=== PATIENT | male | born 1950 | race African-American/Black ===

== ENCOUNTER → 2016-07-07 | Day surgery (SDC) | payer MEDICARE ==
[~2016-07-07] MED LIST: ADVAI100I PO; ALPR0.5T3 PO; ASPI81 PO; B-12500T3 PO; BUPR-86 PO; GABA300C3 PO; HYDR-3129 PO; IRON28TA OR; LACTATED RINGER'S 1000 ML INJ 1,000 ML ONE; LOVA40TA PO; METO25 PO; MULT-65 PO; PLAV75TA PO; POTA-243 PO; PROPOFOL 200 MG/20 ML AMP IV ONE; SELE200T2 OR; VIAG100T PO
--- NOTE | 2016-07-07 11:17 | GIPROC ---
[facility] [address] [facility], [address] COLONOSCOPY PROCEDURE REPORT EXAM DATE: 07/07/2016 PATIENT NAME: Khurram Pablo MR #: [id number] BIRTHDATE: 1950 ENDOSCOPIST: Katherine Hurtado MD ORDER #: [id number] GREEN CHAIN PULLER: Shelia Reed RN STATUS: outpatient INDICATIONS: The patient is a 66 yr old male here for a colonoscopy due to average risk patient for colon cancer PROCEDURE PERFORMED: Colonoscopy, screening MEDICATIONS: None and Per Anesthesia. PREP QUALITY: The [place] Bowel Prep Score was Right colon 2, Mid colon 3, and Left colon 3. Total = 8. PREP TYPE:GoLytely ESTIMATED BLOOD LOSS: None CONSENT: The patient understands the risks and benefits of the procedure and understands that these risks include, but are not limited to: sedation, allergic reaction, infection, perforation and/or bleeding. Alternative means of evaluation and treatment include, among others: physical exam, x-rays, and/or surgical intervention. The patient elects to proceed with this endoscopic procedure. medical equipment was checked for proper function. Hand hygiene and appropriate measures for infection prevention was taken. After the risks, benefits and alternatives of the procedure were thoroughly explained, Informed consent was verified, confirmed and timeout was successfully executed by the treatment team. A digital exam revealed external hemorrhoids The [id number] ([id number]) endoscope was introduced through the anus and advanced to the cecum, which was identified by both the appendix and ileocecal valve. The instrument was then slowly withdrawn as the colon was fully examined. COLON FINDINGS: The colonic mucosa appeared normal. Retroflexed views revealed internal hemorrhoids and Retroflexed views revealed small internal hemorrhoids The scope was then completely withdrawn from the patient and the procedure terminated. PROCEDURE WITHDRAWAL TIME:6minutes ADVERSE EVENTS: There were no complications. IMPRESSIONS: 1. The colonic mucosa appeared normal 2. Retroflexed views revealed internal hemorrhoids 3. Retroflexed views revealed small internal hemorrhoids 4. Revealed external hemorrhoids RECOMMENDATIONS: 1. Continue surveillance 2. Yearly hemoccult RECALL: Return 10 years Colonoscopy Katherine Hurtado MD eSigned: Katherine Hurtado MD 07/07/2016 11:16 AM cc: Kayla Garcia and Mira Douglas M.D. PATIENT NAME: Khurram Pablo MR#: [id number]
== END | disposition home or self-care (01) ==
LOC: ESDC 09:59
PROVIDERS: ATTEND Internal Medicine Gastroenterology
DX: Z12.11 Encounter for screening for malignant neoplasm of colon (principal); K64.8 Other hemorrhoids; K64.4 Residual hemorrhoidal skin tags
CPT/HCPCS: 00810; 45378; J7120

== ENCOUNTER 2017-06-23 06:10 | Inpatient (IN) | payer MEDICARE, OTHER ==
[~2017-06-23] VITALS: Ht 185.4 cm; Wt 77.0 kg
[~2017-06-23 06:10] MED LIST changes: -ADVAI100I PO; +ASPI1TAB57 PO; -ASPI81 PO; -B-12500T3 PO; -BUPR-86 PO; +BUPR150CR PO; -GABA300C3 PO; +GABA300C5 PO; -HYDR-3129 PO; +HYDR-3583 PO; -IRON28TA OR; -LACTATED RINGER'S 1000 ML INJ 1,000 ML ONE; -METO25 PO; +METO25TA3 PO; -PLAV75TA PO; -POTA-243 PO; +POTA10TA2 PO; -PROPOFOL 200 MG/20 ML AMP IV ONE; -VIAG100T PO
[2017-06-23] MEDS ORDERED: CHLORHEXIDINE GLUCONATE 2 % 1 PACK (2 CLOTHS) TOPICAL PRN (06:30)
[2017-06-23] MEDS ORDERED: LACTATED RINGER'S 1000 ML IV PRN (06:30)
[2017-06-23] MEDS ORDERED: SODIUM CHLORID 0.9% 500 ML IV PRN (06:30)
[2017-06-23] MEDS ORDERED: POVIDONE IODINE 5% (ANTISEPSIS KIT) 4 APPLICATIONS EACH NARE PRN (06:30)
[2017-06-23] MEDS ORDERED: METOPROLOL TARTRATE 25 MG TAB PO PRN (06:30)
--- NOTE | 2017-06-23 06:34 | PD.VS.PN ---
Pre-operative Note Pre-operative diagnosis: PAD, aorto-iliac occlusive disease and failed inflow procedures Planned procedure: ABF Interval History: Pt has been feeling well, no changes that would preclude surgery Labs: pending Blood: T&S Imaging: CTA (NARVAEZ) reviewed Orders: NPO Ancef 2g IV OCTOR Post-operative destination: CVICU Operative site marked: No (bilateral and midline) Consent: Informed consent has been obtained from Khurram Pablo. I have explained the procedure in detail and discussed the risks, benefits, and potential complications. All questions have been answered. Patient contact information: [phone] Angel Marcano MD Jun 23, 2017 06:34
[2017-06-23] MEDS ORDERED: BUPIVACAINE HCL PF 0.5% 30 ML VIAL ONE (06:41)
[2017-06-23] MEDS ORDERED: HEPARIN SODIUM - IV 10,000 UNITS/10 ML VIAL ONE ×2 (06:41→06:49)
[2017-06-23] MEDS ORDERED: ceFAZolin INJ 1,000 MG VIAL ONE ×2 (06:41→11:49)
[2017-06-23] MEDS ORDERED: PROTAMINE SULFATE 50 MG/5 ML VIAL ONE (06:41)
[2017-06-23] MEDS ORDERED: THROMBIN (TOPICAL) 20,000 UNIT SPRAY KIT ONE (06:42)
[2017-06-23] MEDS ORDERED: HEPARIN-NS/PF INJ 0 ML ONE (06:42)
[2017-06-23 06:43] LABS: BILIRUBIN, URINE NEG (NEG); BLOOD, URINE NEG (NEG); GLUCOSE,URINE NEG (NEG); KETONE, URINE NEG (NEG); MUCUS URINE FEW /lpf (OCC); NITRITE,URINE NEG (NEG); PH, URINE 5.5 (5.0-8.5); SQUAMOUS EPITHELIAL CELL URINE <1 /hpf (0-5); URINE COLOR YELLOW (YELLW/STRAW); URINE LEUKOCYTE ESTERASE NEG (NEG)
[2017-06-23] MEDS ORDERED: ACETAMINOPHEN 1000 MG/100 ML 100 ML IV ONE (07:16)
[2017-06-23 07:25] LABS: AUTOMATED NEUTROPHIL # 2.4 TH/MM3 (1.8-7.7); BASOPHIL % 0.4 % (0.0-2.0); EOSINOPHIL # 0.1 TH/MM3 (0-0.4); EOSINOPHIL % 1.7 % (0.0-4.0); HEMATOCRIT 42.7 % (39.0-51.0); HEMOGLOBIN 14.6 GM/DL (13.0-17.0); LYMPH % 29.2 % (9.0-44.0); LYMPHOCYTE # 1.2 TH/MM3 (1.0-4.8); MEAN CELL VOLUME 96.1 FL (80.0-100.0); MEAN CORPUSCULAR HGB CONC 34.3 % (32.0-36.0); MEAN PLATELET VOLUME 8.1 FL (7.0-11.0); MONOCYTE # 0.5 TH/MM3 (0-0.9); NEUT % 57.7 % (16.0-70.0); PLATELET COUNT 131 TH/MM3 (150-450); RED BLOOD COUNT 4.44 MIL/MM3 (4.50-5.90); WHITE BLOOD COUNT 4.2 TH/MM3 (4.0-11.0)
[2017-06-23 07:32] LABS: INTERNATIONAL NORMALIZED RATIO 1.1 RATIO; PROTHROMBIN TIME - PATIENT 10.7 SEC (9.8-11.6)
[2017-06-23 07:45] LABS: BICARBONATE 31.3 MEQ/L (21.0-32.0); CALCIUM 8.8 MG/DL (8.5-10.1); CREATININE 1.28 MG/DL (0.60-1.30)
[2017-06-23] MEDS ORDERED: HEPARIN SODIUM - SQ 10,000 UNITS/ML VIAL ONE (09:25)
[2017-06-23] MEDS ORDERED: FUROSEMIDE 20 MG/2 ML VIAL ONE (11:58)
[2017-06-23] MEDS ORDERED: VECURONIUM BROMIDE 20 MG VIAL IV ONE (12:00)
[2017-06-23] MEDS ORDERED: PHENYLEPHRINE HCL 10 MG/ML VIAL IV ONE (12:00)
[2017-06-23] MEDS ORDERED: PROPOFOL 200 MG/20 ML AMP IV ONE (12:00)
[2017-06-23] MEDS ORDERED: ePHEDrine/NS 25 MG/5 ML SYRINGE IV ONE (12:00)
[2017-06-23] MEDS ORDERED: PHENYLEPH/NS 1000 MCG/10 ML SYR IV ONE (12:00)
[2017-06-23] MEDS ORDERED: GLYCOPYRROLATE 1 MG/5 ML SYRINGE IV PUSH ONE (12:00)
[2017-06-23] MEDS ORDERED: LIDOCAINE HCL 1% PF 5 ML SYRINGE OTHER ONE (12:00)
[2017-06-23] MEDS ORDERED: NEOSTIGMINE 5 MG/5 ML SYRINGE IV PUSH ONE (12:00)
[2017-06-23] MEDS ORDERED: STERILE WATER FOR INJECTION 20 ML VIAL IV ONE (12:00)
[2017-06-23] MEDS ORDERED: ROCURONIUM INJ 50 MG/5 ML SYRINGE IV PUSH ONE (12:00)
[2017-06-23] MEDS ORDERED: NORMOSOL R INJ 2,000 ML IV ONE (12:00)
[2017-06-23] MEDS ORDERED: LACTATED RINGER'S 1000 ML INJ 2,000 ML IV ONE (12:00)
--- NOTE | 2017-06-23 12:30 | EKG ---
Date Performed: 06/23/2017 Time Performed: 07:05:42 PTAGE: 67 years EKG: SINUS BRADYCARDIA WITH SINUS ARRHYTHMIA BORDERLINE ECG PREVIOUS TRACING : 09/08/2011 12.13 Since the previous tracing, no significant change noted DOCTOR: Laith Washington Interpretating Date/Time 06/23/2017 12:30:13
[2017-06-23] MEDS ORDERED: HYDROmorphone HCL PF 1 MG/ML VIAL ONE (12:35)
--- NOTE | 2017-06-23 12:48 | HHI.PR ---
cc: Anegl Marcano MD Immediate Post Op Note Procedure Date: Jun 23, 2017 Pre Op Diagnosis: PAD, aorto-iliac occlusive disease Post Op Diagnosis: PAD, aorto-iliac occlusive disease Surgeon: Angel Marcano Acid Mixer(s): Patrice Mathis Procedure: 1. ABF (16x8) 2. L PFA TEA with patch Findings: significant occlusive disease B groins prior fem-fem and R groin reconstruction R SFA chronically occluded Complications: none Specimen(s) removed: none for pathology Estimated blood loss: 400mL Anesthesia: General Drains: None Fluids: 2300mL IVF Urinary Output (mLs): 300 Patient to: CVICU Patient Condition: Good Implant/Devices: SEE IMPLANT LOG (if applicable) Date/Time of Procedure: SEE SURGICAL CARE RECORD Angel Marcano MD Jun 23, 2017 12:48
[2017-06-23] MEDS ORDERED: NALOXONE HCL 0.4 MG/ML AMP IV PUSH PRN (13:00)
[2017-06-23 13:48] LABS: HEMATOCRIT 38.4 % (39.0-51.0); HEMOGLOBIN 13.2 GM/DL (13.0-17.0); MEAN CELL VOLUME 96.2 FL (80.0-100.0); MEAN CORPUSCULAR HEMOGLOBIN 33.1 PG (27.0-34.0); MEAN CORPUSCULAR HGB CONC 34.5 % (32.0-36.0); MEAN PLATELET VOLUME 8.1 FL (7.0-11.0); PLATELET COUNT 135 TH/MM3 (150-450); RED BLOOD COUNT 3.99 MIL/MM3 (4.50-5.90); RED CELL DISTRIBUTION WIDTH 13.9 % (11.6-17.2); WHITE BLOOD COUNT 16.9 TH/MM3 (4.0-11.0)
[2017-06-23] MEDS: PCA - TOTAL MG DILAUDID DELIVERED PER SHIFT OTHER SCH ×2 (14:00→23:50)
--- NOTE | 2017-06-23 14:12 | PD.CONS ---
[facility] Service Critical Care Medicine Consult Requested By Dr. Marcano Reason for Consult medical management of comorbid conditions Primary Care Physician Mira Douglas M.D. History of Present Illness This is a 5-year-old male with a history of peripheral vascular disease who presents for aortobifemoral bypass. He underwent uncompleted bypass and arrives to the CVICU in stable and extubated condition. Of note, his GORDY in the right lower extremity was 0 preoperatively and now is 0.5. He does not have palpable pulses in the right lower extremity but dopplerable pulses weakly in the right lower extremity. The patient is arousing from anesthesia and a full history is unobtainable. However patient, the patient denies nausea, vomiting, headache, shortness of breath, chest pain. Review of Systems ROS Limitations: Clinical Condition Respiratory: DENIES: Shortness of breath Cardiovascular: DENIES: Chest pain Gastrointestinal: DENIES: Nausea, Vomiting Neurologic: DENIES: Headache ROS Arousing from anesthesia Past Family Social History Allergies: Coded Allergies: codeine (Unverified Allergy, Severe, HALLUCINATES, 06/23/17) hallucinates Past Medical History Coronary artery disease Peripheral arterial vascular disease Hyperlipidemia Hypertension Past Surgical History Coronary angioplasty Pacemaker Reported Medications Potassium Chloride ER (Potassium Chloride) 10 Meq Tab 10 Meq PO DAILY Multi-Vitamin Daily (Multiple Vitamin) 1 Tab Tab 1 Tab PO DAILY Metoprolol Tartrate 25 Mg Tab 25 Mg PO BID Lovastatin 40 Mg Tab 40 Mg PO DAILY Hydrocodone-Acetaminophen 10-325 mg Tab 1 Tab PO Q4H PRN Gabapentin 300 Mg Cap 300 Mg PO BID Wellbutrin SR 12 HR (Bupropion HCl) 150 Mg Tab 150 Mg PO Q12HR Aspirin 81 (Aspirin) 81 Mg Tabdr 81 Mg PO DAILY Alprazolam 0.5 Mg Tab 0.5 Mg PO Q8H PRN Active Ordered Medications See MAR Family History Reviewed and found to be noncontributory to his acute illness Social History Former smoker, denies EtOH. Physical Exam Vital Signs Vital Signs Date Time Temp Pulse Resp B/P (MAP) Pulse Ox O2 Delivery O2 Flow Rate FiO2 06/23/17 07:03 97.5 60 20 144/68 (93) 100 Physical Exam GENERAL: Middle-aged appearing male, lying in bed, arousing from anesthesia, somnolent but arousable HEENT: Normocephalic. Atraumatic. Pupils equal, round, reactive, conjugate. Mucous membranes are moist NECK: Trachea is midline. There is no JVD. CHEST: Equal chest rise. Nasal cannula oxygen. CARDIOVASCULAR: Normal rate, regular rhythm. Appears sinus by telemetry. ABDOMEN: Soft, midline abdominal incision with Dermabond, site is clean and dry. Abdomen is mildly tender to palpation diffusely, no guarding or rebound. MUSCULOSKELETAL: Bilateral groin sites are covered with wound vacs. There is no evidence of groin hematoma. Distal pulses are dopplerable bilaterally, stronger in the right and the left which is baseline per Dr. Marcano. NEUROLOGICAL: RASS -2. Arousing from anesthesia. Moves all extremities. Follows commands. No focal deficits. Laboratory Laboratory Tests Test 06/23/17 06:20 06/23/17 07:10 06/23/17 13:35 Urine Color YELLOW Urine Turbidity CLEAR Urine pH 5.5 Urine Specific Foster 1.023 Urine Protein TRACE Urine Glucose (UA) NEG Urine Ketones NEG Urine Occult Blood NEG Urine Nitrite NEG Urine Bilirubin NEG Urine Urobilinogen 4.0 Urine Leukocyte Esterase NEG Urine RBC LESS THAN 1 Urine WBC 1 Urine Squamous Epithelial Cells <1 Urine Mucus FEW Microscopic Urinalysis Comment CULT NOT INDICATED White Blood Count 4.2 16.9 Red Blood Count 4.44 3.99 Hemoglobin 14.6 13.2 Hematocrit 42.7 38.4 Mean Corpuscular Volume 96.1 96.2 Mean Corpuscular Hemoglobin 33.0 33.1 Mean Corpuscular Hemoglobin Concent 34.3 34.5 Red Cell Distribution Width 14.0 13.9 Platelet Count 131 135 Mean Platelet Volume 8.1 8.1 Neutrophils (%) (Auto) 57.7 Lymphocytes (%) (Auto) 29.2 Monocytes (%) (Auto) 11.0 Eosinophils (%) (Auto) 1.7 Basophils (%) (Auto) 0.4 Neutrophils # (Auto) 2.4 Lymphocytes # (Auto) 1.2 Monocytes # (Auto) 0.5 Eosinophils # (Auto) 0.1 Basophils # (Auto) 0.0 CBC Comment DIFF FINAL Differential Comment Prothrombin Time 10.7 Prothromb Time International Ratio 1.1 Blood Urea Nitrogen 9 Creatinine 1.28 Random Glucose 93 Calcium Level 8.8 Sodium Level 143 Potassium Level 4.2 Chloride Level 109 Carbon Dioxide Level 31.3 Anion Gap 3 Estimat Glomerular Filtration Rate 68 Result Diagram: 06/23/17 1335 06/23/17 0710 Assessment and Plan Assessment and Plan Assessment: 67-year-old male postop day 0 status post aortobifemoral bypass. We will admit to ICU with frequent neurovascular checks. s/p aortobifemoral bypass Severe peripheral arterial disease - frequent neurovascular checks - post-op labs - close uop monitoring HTN - restart home losartan - hold lopressor for now: will likely restart in the AM. CAD - restart home aspirin Peripheral neuropathy - restart home gabapentin Depression - restart home wellbutrin Anxiety - hold home xanax. would judiciously add back if severe anxiety or if history of chronic xanax use. Diet management per Dr. Marcano. SCDs Admit to ICU CCM will continue to follow along as long as patient remains in the CVICU. Aakash Powell MD Jun 23, 2017 14:12
[2017-06-23] MEDS: HYDROmorphone HCL PCA 6 MG/30 ML IV SCH (14:18)
[2017-06-23] MEDS: LACTATED RINGER'S 1000 ML INJ 1,000 ML IV SCH (14:18)
[2017-06-23 14:30] LABS: BICARBONATE 26.5 MEQ/L (21.0-32.0); CALCIUM 7.9 MG/DL (8.5-10.1); CREATININE 1.34 MG/DL (0.60-1.30)
[2017-06-23 15:00] VITALS: BP_SYST 142; BP_SYST 144; BP_DIAS 56; BP_DIAS 74; PULSE 62; RESP 16; TEMP 97.7; O2SAT 97
--- NOTE | 2017-06-23 16:51 | MP ---
cc: Angel Marcano MD DATE OF OPERATION: 06/23/2017 PREOPERATIVE DIAGNOSIS: Peripheral arterial occlusive disease, infrarenal aortoiliac occlusive disease and status post bilateral groin reconstruction and left to right fem-fem bypass with iliac stenting. POSTOPERATIVE DIAGNOSIS: Peripheral arterial occlusive disease, infrarenal aortoiliac occlusive disease and status post bilateral groin reconstruction and left to right fem-fem bypass with iliac stenting. PROCEDURE PERFORMED: 1. Aortobifemoral bypass graft with a 16 x 8 mm Dacron. 2. Left profunda endarterectomy and patch angioplasty. ATTENDING SURGEON: Angel Marcano MD TALENT DEVELOPMENT COORDINATOR SURGEON: Patrice Mathis. ANESTHESIA: General. INDICATIONS FOR PROCEDURE: Mr. Pablo is a 67-year-old gentleman with significant peripheral vascular disease, aBIs of zero on the right. He has aortoiliac occlusive disease and a CT scan and surgical history includes bilateral groin reconstruction, fem-fem bypass and iliac stenting, all of which appeared to have failed. He is taken to the operating room for definitive in line aortic reconstruction. Intraoperatively, it was found that the outflow of the aortobifemoral was his right profunda femoris. DESCRIPTION OF PROCEDURE: Informed consent was obtained. The patient was taken to the operating room and placed supine on the operating table. An appropriate timeout was taken to ensure the patient's identity, operative site and planned procedure. The administration of 2 grams of Ancef was initiated prior to skin incision and was redosed 4 hours later. Everyone in the room agreed with the timeout and we proceeded. He was prepped from the chin to his toes. Vertical incision made in the patient's groin. It was carried down through subcutaneous tissue with electrocautery. Dense scar tissue was encountered on the left groin. We dissected out the fem-fem bypass, which was occluded and transected. We then dissected out the external iliac artery, common femoral artery, profunda down to the second and third order branches as well as the superficial femoral artery. On the right hand side, even more scar tissue was encountered. There was the recipient side of the fem-fem bypass, as well as what appears to be a groin reconstruction. All this was dissected free. The SFA was occluded and very calcific. The profunda was dissected free very distally, but was a reasonably sized and caliber blood vessel. It was dissected free for about 3 cm. Tunnel was then created from the groin up towards the abdomen. An incision was made in the patient's abdomen from the xiphoid just below the umbilicus, carried down through subcutaneous tissue with electrocautery. The fascia was then divided. The peritoneum was sharply entered and the abdominal contents were explored. There was no untoward pathology. The bowel was swept to the patient's right-hand side and the aorta was easily identified. We dissected up to the renal vein and the aorta was soft enough to place a clamp at this location. Tunnels were then created from the groins to the abdomen running along the iliac arteries and clamps were placed in these planes. The patient was systemically heparinized. Proximal and distal control of the aorta was obtained with a zinger and a DeBakey aortic clamp and a longitudinal aortotomy was made with an 11-blade extended with [place]na scissors. A 16 x 8 graft was brought up onto the field, spatulated and sewn end-to-side with running 3-0 Prolene suture. At the completion was flushed and hemostatic clamps were placed on the graft and the clamps released from the aorta. Hemostasis was achieved. Taking caution not to twist each limb, the limbs were passed down through the tunnels to the groins. On the right hand side, proximal and distal control of the profunda were obtained with profunda clamps and longitudinal arteriotomy was made with 11 blade, extended with Sae scissors. The graft was cut to an appropriate length, spatulated and sewn end to side to the profunda with running 5-0 Prolene suture. The patient was flushed and noted to be hemostatic. There was nice palpable pulse in the distal profunda. On the left hand side, the external iliac artery was occluded with a profunda clamp and 2 branches of the profunda as well as the SFA were occluded with profunda clamps. A longitudinal arteriotomy was made, going from the common femoral artery, excising the fem-fem donor site and extending down to the profunda. The profunda was endarterectomized and a bovine pericardial patch was sewn on with a running 5-0 Prolene suture and a longitudinal arteriotomy was made in this patch and extended with Sae scissors. The ABF limb was cut to an appropriate length, spatulated and sewn end-to-side with running 5-0 Prolene suture. At the completion it was flushed and noted to be hemostatic. The clamps were released. There were palpable pulses in the recipient arteries of the ABF limb. There were Doppler signals in the left foot and the right foot was warm and pink. The wounds were made hemostatic. The heparin was reversed with protamine. The aortic graft was reretroperitonealized with 2-0 Polysorb. The abdominal wound was then closed with #1 looped Maxon, 3-0 Polysorb and 4-0 Monocryl. The groins were closed in 4 layers with 2-0 Polysorb twice, 3-0 Polysorb and 4-0 Monocryl. Sponge and needle counts were correct at the end of the case. I was present, scrubbed, and performed the entire procedure. Angel Marcano MD RJBob/KRISTYN , 03:06 PM , 04:51 PM
[2017-06-23 17:51] VITALS: O2SAT 94
[2017-06-23 19:00] VITALS: PULSE 81
[2017-06-23 19:28] VITALS: BP_SYST 134; BP_SYST 144; BP_DIAS 57; BP_DIAS 74; PULSE 71; RESP 16; TEMP 97.9; O2SAT 94
[2017-06-23] MEDS: buPROPion HCL 150 MG SUSTAINED RELEASE TAB PO SCH (21:00)
[2017-06-23] MEDS: FAMOTIDINE 20 MG TAB PO SCH (21:00)
[2017-06-23] MEDS: GABAPENTIN 300 MG CAP PO SCH (21:00)
[2017-06-23 22:00] VITALS: RESP 20
[2017-06-23 23:00] VITALS: BP_SYST 150; BP_SYST 158; BP_DIAS 61; BP_DIAS 84; PULSE 81; PULSE 83; RESP 20; TEMP 97.7; O2SAT 95
[2017-06-24] VITALS (9 sets, daily range): BP systolic 133–156; BP diastolic 60–82; PULSE 76–92; RESP 16–18; TEMP 98.5–100; O2SAT 94–96
[2017-06-24] MEDS: LACTATED RINGER'S 1000 ML INJ 1,000 ML IV SCH ×2 (01:55→13:50)
[2017-06-24] MEDS ORDERED: LABETALOL HCL 100 MG/20 ML VIAL ONE (02:29)
[2017-06-24] MEDS ORDERED: hydrALAZINE HCL 20 MG/ML VIAL IV PUSH PRN (02:30)
[2017-06-24] MEDS ORDERED: LABETALOL HCL 100 MG/20 ML VIAL IV PUSH PRN (02:30)
[2017-06-24 04:12] LABS: HEMATOCRIT 37.8 % (39.0-51.0); HEMOGLOBIN 13.2 GM/DL (13.0-17.0); MEAN CELL VOLUME 95.3 FL (80.0-100.0); MEAN CORPUSCULAR HEMOGLOBIN 33.2 PG (27.0-34.0); MEAN CORPUSCULAR HGB CONC 34.8 % (32.0-36.0); MEAN PLATELET VOLUME 8.4 FL (7.0-11.0); PLATELET COUNT 127 TH/MM3 (150-450); RED BLOOD COUNT 3.97 MIL/MM3 (4.50-5.90); RED CELL DISTRIBUTION WIDTH 14.2 % (11.6-17.2); WHITE BLOOD COUNT 13.2 TH/MM3 (4.0-11.0)
[2017-06-24 04:27] LABS: BICARBONATE 25.8 MEQ/L (21.0-32.0); CALCIUM 7.9 MG/DL (8.5-10.1); CREATININE 1.39 MG/DL (0.60-1.30)
[2017-06-24] MEDS: PCA - TOTAL MG DILAUDID DELIVERED PER SHIFT OTHER SCH ×2 (06:00→13:50)
--- NOTE | 2017-06-24 06:51 | PD.VS.PN ---
Subjective POD #: 1 Procedure(s): ABF and L groin PFA TEA Subjective/Hospital Course looks great. pain controlled Minimal NGT output decent UOP Feet feel ok Objective Vitals/I&O Date Time Temp Pulse Resp B/P (MAP) Pulse Ox O2 Delivery O2 Flow Rate FiO2 06/24/17 06:12 16 06/24/17 06:00 16 06/24/17 03:18 98.5 76 18 133/75 (94) 94 138/60 (86) 06/24/17 03:00 83 06/23/17 23:50 20 06/23/17 23:00 83 06/23/17 23:00 97.7 81 20 158/84 (108) 95 150/61 (90) 06/23/17 22:00 20 06/23/17 21:49 98 Room Air 06/23/17 19:28 97.9 71 16 144/74 (97) 94 134/57 (82) 06/23/17 19:00 81 06/23/17 17:51 94 21 06/23/17 15:00 97.7 62 16 144/74 (97) 97 142/56 (84) 06/23/17 15:00 62 06/23/17 14:18 14 06/23/17 07:03 97.5 60 20 144/68 (93) 100 06/24/17 06/24/17 06/24/17 07:00 15:00 23:00 Intake Total 1028 ml Output Total 655 ml Balance 373 ml Exam: resting comfortably, neuro intact strong Doppler signals B groins soft with Prevena Laboratory Laboratory Tests Test 06/23/17 07:10 06/23/17 13:35 06/24/17 03:40 White Blood Count 4.2 16.9 13.2 Red Blood Count 4.44 3.99 3.97 Hemoglobin 14.6 13.2 13.2 Hematocrit 42.7 38.4 37.8 Mean Corpuscular Volume 96.1 96.2 95.3 Mean Corpuscular Hemoglobin 33.0 33.1 33.2 Mean Corpuscular Hemoglobin Concent 34.3 34.5 34.8 Red Cell Distribution Width 14.0 13.9 14.2 Platelet Count 131 135 127 Mean Platelet Volume 8.1 8.1 8.4 Neutrophils (%) (Auto) 57.7 Lymphocytes (%) (Auto) 29.2 Monocytes (%) (Auto) 11.0 Eosinophils (%) (Auto) 1.7 Basophils (%) (Auto) 0.4 Neutrophils # (Auto) 2.4 Lymphocytes # (Auto) 1.2 Monocytes # (Auto) 0.5 Eosinophils # (Auto) 0.1 Basophils # (Auto) 0.0 CBC Comment DIFF FINAL Differential Comment Prothrombin Time 10.7 Prothromb Time International Ratio 1.1 Blood Urea Nitrogen 9 9 15 Creatinine 1.28 1.34 1.39 Random Glucose 93 166 155 Calcium Level 8.8 7.9 7.9 Sodium Level 143 141 143 Potassium Level 4.2 4.1 4.2 Chloride Level 109 108 109 Carbon Dioxide Level 31.3 26.5 25.8 Anion Gap 3 7 8 Estimat Glomerular Filtration Rate 68 64 62 Assessment and Plan Plan POD#1 s/p ABF and groin reconstruction 1. D/C NGT (done on rounds) 2. D/C a-line 3. Continue MIVF at present rate given mild inc creatinine. UOP ok 4. OOB TC 5. If + flatus, ok for clears later today, but likely tomorrow 6. continue pulse checks Discharge Planning 4-5 days to CPCU later today vs tomorrow Angel Marcano MD Jun 24, 2017 06:51
[2017-06-24] MEDS: METOPROLOL TARTRATE 25 MG TAB PO SCH ×2 (09:12→21:46)
[2017-06-24] MEDS: buPROPion HCL 150 MG SUSTAINED RELEASE TAB PO SCH ×2 (09:12→21:44)
[2017-06-24] MEDS: FAMOTIDINE 20 MG TAB PO SCH ×2 (09:12→21:45)
[2017-06-24] MEDS: GABAPENTIN 300 MG CAP PO SCH ×2 (09:12→21:45)
[2017-06-24] MEDS: ASPIRIN EC 81 MG TABEC PO SCH (09:13)
[2017-06-24] MEDS: PRAVASTATIN SOD 40 MG TAB PO SCH (09:13)
[2017-06-24] MEDS: HYDROmorphone HCL PCA 6 MG/30 ML IV SCH (09:14)
[2017-06-24] MEDS: ENOXAPARIN SODIUM 40 MG/0.4 ML SYRINGE SQ SCH (12:00)
--- NOTE | 2017-06-24 12:08 | HHI.CCPN ---
Subjective Remarks/Hospital Course Hospital Course: This is a 5-year-old male with a history of peripheral vascular disease who presents for aortobifemoral bypass. He underwent uncompleted bypass and arrives to the CVICU in stable and extubated condition. Of note, his GORDY in the right lower extremity was 0 preoperatively and now is 0.5. He does not have palpable pulses in the right lower extremity but dopplerable pulses weakly in the right lower extremity. The patient is arousing from anesthesia and a full history is unobtainable. However patient, the patient denies nausea, vomiting, headache, shortness of breath, chest pain. Subjective: 06/24: clinically improving. NGT d/c'd. art line d/c'd. Cr did slightly increase , though uop adequate. denies complaints. extremities warm and perfused. no flatus yet. Objective Vital Signs Date Time Temp Pulse Resp B/P (MAP) Pulse Ox O2 Delivery O2 Flow Rate FiO2 06/24/17 11:00 83 06/24/17 11:00 98.8 18 151/76 (101) 95 Arterial Line 06/24/17 07:00 Room Air 06/23/17 17:51 21 Intake and Output 06/24/17 06/24/17 06/25/17 08:00 16:00 00:00 Intake Total 1028 ml Output Total 655 ml Balance 373 ml Result Diagram: 06/24/17 0340 06/24/17 0340 Objective Remarks GENERAL: Middle-aged appearing male, sitting up in bed, awake, alert. HEENT: Normocephalic. Atraumatic. Pupils equal, round, reactive, conjugate. Mucous membranes are moist NECK: Trachea is midline. There is no JVD. CHEST: Equal chest rise. Nasal cannula oxygen. CARDIOVASCULAR: Normal rate, regular rhythm. Appears sinus by telemetry. ABDOMEN: Soft, midline abdominal incision with Dermabond, site is clean and dry. Abdomen is mildly tender to palpation diffusely, no guarding or rebound. MUSCULOSKELETAL: Bilateral groin sites are covered with wound vacs. There is no evidence of groin hematoma. Distal pulses are dopplerable bilaterally, stronger in the right and the left which is baseline per Dr. Rutledge. NEUROLOGICAL: RASS 0. follows commands. no focal deficits. A/P Assessment and Plan Assessment: 67-year-old male postop day 1 status post aortobifemoral bypass. agree with continuing mivf today. agree with advancement of diet as patient's bowel function returns. agree with d/c art breezy, tatum moore. from my standpoint , can transfer out of ICU later today. s/p aortobifemoral bypass Severe peripheral arterial disease - clinically improving. - advance diet per Dr. rutledge - pain control per Dr. Rutledge. HTN - restart home losartan - restart home lopressor. CAD - restart home aspirin Peripheral neuropathy - restart home gabapentin Depression - restart home wellbutrin Anxiety - hold home xanax. would judiciously add back if severe anxiety or if history of chronic xanax use. Diet management per Dr. Rutledge. SCDs ok to transfer out of ICU. CCM will sign off once patient leaves the ICU. please call with questions. Aakash Powell MD Jun 24, 2017 12:08
[2017-06-24] MEDS ORDERED: HALOPERIDOL LACTATE 5 MG/ML AMP IV PUSH ONE (13:30)
[2017-06-24] MEDS ORDERED: OLANZapine ODT 5 MG TAB PO ONE (15:00)
[2017-06-25] VITALS (16 sets, daily range): BP systolic 129–150; BP diastolic 63–72; PULSE 75–84; RESP 14–18; TEMP 98.7–100; O2SAT 93–99
[2017-06-25] MEDS: LACTATED RINGER'S 1000 ML INJ 1,000 ML IV SCH ×3 (06:07→21:58)
--- NOTE | 2017-06-25 08:38 | PD.VS.PN ---
Subjective POD #: 2 Procedure(s): ABF and L groin PFA TEA Subjective/Hospital Course no nausea since NGT out + voiding feet feel ok pain controlled Objective Vitals/I&O Date Time Temp Pulse Resp B/P (MAP) Pulse Ox O2 Delivery O2 Flow Rate FiO2 06/25/17 03:00 84 06/25/17 03:00 100.0 84 14 146/72 (96) 93 06/24/17 23:00 100.0 84 16 151/72 (98) 94 06/24/17 23:00 86 06/24/17 19:00 89 06/24/17 19:00 95 Room Air 06/24/17 19:00 99.7 92 16 150/77 (101) 94 06/24/17 15:00 98.6 86 18 156/82 (106) 94 06/24/17 15:00 87 06/24/17 14:00 16 06/24/17 13:50 16 06/24/17 11:00 83 06/24/17 11:00 98.8 90 18 151/76 (101) 95 Arterial Line 06/24/17 09:44 16 06/24/17 09:14 16 06/25/17 06/25/17 06/25/17 07:00 15:00 23:00 Intake Total 975 ml Output Total 600 ml Balance 375 ml Exam: resting comfortably motor intact Pulses: strong Doppler signals B feet Incisions: groins soft with Prevena abdominal incision c/d/i Assessment and Plan Plan POD#2 s/p ABF and groin reconstruction 1. HL IVF 2. Clear liq diet 3. OOB TC and ambulate / PT consult 4. Transfer to [facility]PCU Discharge Planning Likely tuesday to CPCU today Angel Marcano MD Jun 25, 2017 08:38
[2017-06-25] MEDS: FAMOTIDINE 20 MG TAB PO SCH ×2 (10:03→21:37)
[2017-06-25] MEDS: METOPROLOL TARTRATE 25 MG TAB PO SCH ×2 (10:03→21:39)
[2017-06-25] MEDS: buPROPion HCL 150 MG SUSTAINED RELEASE TAB PO SCH ×2 (10:03→21:37)
[2017-06-25] MEDS: ASPIRIN EC 81 MG TABEC PO SCH (10:03)
[2017-06-25] MEDS: PRAVASTATIN SOD 40 MG TAB PO SCH (10:03)
[2017-06-25] MEDS: GABAPENTIN 300 MG CAP PO SCH ×2 (10:03→21:39)
[2017-06-25] MEDS: ENOXAPARIN SODIUM 40 MG/0.4 ML SYRINGE SQ SCH (12:48)
[2017-06-25] MEDS: HYDROmorphone HCL 2 MG TAB PO PRN ×2 (15:00→21:38)
[2017-06-26] VITALS (25 sets, daily range): BP systolic 127–140; BP diastolic 65–74; PULSE 63–88; RESP 16–20; TEMP 98.4–101.2; O2SAT 97–100
[2017-06-26] MEDS: HYDROmorphone HCL 2 MG TAB PO PRN ×2 (04:53→21:51)
--- NOTE | 2017-06-26 08:22 | PD.VS.PN ---
Subjective POD #: 3 Procedure(s): ABF and L groin PFA TEA Subjective/Hospital Course no nausea and edilia clears + voiding OOB and ambulated pain controlled feet feel ok Objective Vitals/I&O Date Time Temp Pulse Resp B/P (MAP) Pulse Ox O2 Delivery O2 Flow Rate FiO2 06/26/17 06:00 82 06/26/17 05:00 88 06/26/17 04:00 86 06/26/17 04:00 100.4 83 16 140/74 (96) 97 06/26/17 03:00 84 06/26/17 02:00 80 06/26/17 01:00 82 06/26/17 00:00 82 06/26/17 00:00 98.9 83 16 133/67 (89) 98 06/25/17 23:00 83 06/25/17 22:00 78 06/25/17 21:00 97 Room Air 06/25/17 21:00 98.9 79 16 144/66 (92) 99 06/25/17 21:00 82 06/25/17 20:00 80 06/25/17 19:00 78 06/25/17 18:07 80 06/25/17 17:02 77 06/25/17 16:05 77 06/25/17 15:03 98.9 75 18 136/63 (87) 99 06/25/17 15:00 78 06/25/17 14:00 80 06/25/17 13:48 75 06/25/17 12:51 98.7 77 18 136/64 (88) 97 06/25/17 12:19 99.9 84 18 129/65 (86) 96 06/26/17 06/26/17 06/26/17 07:00 15:00 23:00 Intake Total 420 ml Output Total 400 ml Balance 20 ml Exam: no distress abdomen slightly full but not tender strong biphasic signals B LE feet warm Assessment and Plan Plan POD#3 s/p ABF and groin reconstruction 1. ADAT - pt not hungry at present but can have cardiac diet anytmie he wants 2. OOB/PT 3. D/C Prevena tomorrow Discharge Planning Likely tuesday Angel Marcano MD Jun 26, 2017 08:22
[2017-06-26] MEDS: PRAVASTATIN SOD 40 MG TAB PO SCH (08:50)
[2017-06-26] MEDS: buPROPion HCL 150 MG SUSTAINED RELEASE TAB PO SCH ×2 (08:51→21:51)
[2017-06-26] MEDS: FAMOTIDINE 20 MG TAB PO SCH ×2 (08:51→22:11)
[2017-06-26] MEDS: GABAPENTIN 300 MG CAP PO SCH ×2 (08:51→21:50)
[2017-06-26] MEDS: ASPIRIN EC 81 MG TABEC PO SCH (08:51)
[2017-06-26] MEDS: METOPROLOL TARTRATE 25 MG TAB PO SCH ×2 (08:51→21:50)
[2017-06-26] MEDS: ENOXAPARIN SODIUM 40 MG/0.4 ML SYRINGE SQ SCH (12:41)
[2017-06-26] MEDS: LACTATED RINGER'S 1000 ML INJ 1,000 ML IV SCH (13:30)
[2017-06-27] VITALS (12 sets, daily range): BP systolic 131–168; BP diastolic 61–80; PULSE 70–84; RESP 14–18; TEMP 98.2–100.5; O2SAT 96–98
[2017-06-27] MEDS: LACTATED RINGER'S 1000 ML INJ 1,000 ML IV SCH (00:13)
--- NOTE | 2017-06-27 07:12 | PD.VS.PN ---
Subjective POD #: 4 Procedure(s): ABF and L groin PFA TEA Subjective/Hospital Course looks great pain controlled ambulating edilia some po Objective Vitals/I&O Date Time Temp Pulse Resp B/P (MAP) Pulse Ox O2 Delivery O2 Flow Rate FiO2 06/27/17 04:00 79 06/27/17 04:00 98.6 77 16 133/65 (87) 97 06/27/17 00:00 81 06/27/17 00:00 100.5 81 18 131/61 (84) 96 06/26/17 22:51 18 06/26/17 20:00 97 Room Air 06/26/17 20:00 101.2 80 20 139/66 (90) 97 06/26/17 20:00 79 06/26/17 18:00 81 06/26/17 17:00 63 06/26/17 16:00 78 06/26/17 15:00 75 06/26/17 15:00 98.6 76 16 135/71 (92) 100 06/26/17 14:00 82 06/26/17 13:00 76 06/26/17 12:00 77 06/26/17 11:00 75 06/26/17 11:00 98.4 79 19 127/65 (85) 98 06/26/17 10:00 79 06/26/17 09:00 84 06/26/17 08:00 84 06/26/17 07:15 81 06/27/17 06/27/17 06/27/17 07:00 15:00 23:00 Intake Total 240 ml Output Total 550 ml Balance -310 ml Exam: abdominal incision ok abdomen not distended Prevenas removed on rounds - groins look great Pulses: Strong Doppler signals B LE Assessment and Plan Plan POD#4 s/p ABF and groin reconstruction 1. normalize today 2. D/C tele Discharge Planning Angel Marcano MD Jun 27, 2017 07:12
[2017-06-27] MEDS: METOPROLOL TARTRATE 25 MG TAB PO SCH ×2 (10:03→21:20)
[2017-06-27] MEDS: GABAPENTIN 300 MG CAP PO SCH ×2 (10:03→21:20)
[2017-06-27] MEDS: PRAVASTATIN SOD 40 MG TAB PO SCH (10:03)
[2017-06-27] MEDS: ASPIRIN EC 81 MG TABEC PO SCH (10:04)
[2017-06-27] MEDS: buPROPion HCL 150 MG SUSTAINED RELEASE TAB PO SCH ×2 (10:04→21:20)
[2017-06-27] MEDS: FAMOTIDINE 20 MG TAB PO SCH ×2 (10:04→21:20)
[2017-06-27] MEDS: ENOXAPARIN SODIUM 40 MG/0.4 ML SYRINGE SQ SCH (12:13)
[2017-06-27] MEDS: HYDROmorphone HCL 2 MG TAB PO PRN (21:20)
[2017-06-28 00:42] VITALS: BP 134/62; PULSE 74; RESP 16; TEMP 98; O2SAT 99
[2017-06-28 03:33] VITALS: BP 138/63; PULSE 73; RESP 16; TEMP 98.5; O2SAT 96
[2017-06-28 08:00] VITALS: BP 141/63; PULSE 78; RESP 16; TEMP 98.3; O2SAT 99
[2017-06-28] MEDS ORDERED: HYDR-3583 PO (08:27)
[2017-06-28] MEDS: buPROPion HCL 150 MG SUSTAINED RELEASE TAB PO SCH (08:33)
[2017-06-28] MEDS: PRAVASTATIN SOD 40 MG TAB PO SCH (08:33)
[2017-06-28] MEDS: FAMOTIDINE 20 MG TAB PO SCH (08:33)
[2017-06-28] MEDS: METOPROLOL TARTRATE 25 MG TAB PO SCH (08:33)
[2017-06-28] MEDS: ASPIRIN EC 81 MG TABEC PO SCH (08:33)
[2017-06-28] MEDS: GABAPENTIN 300 MG CAP PO SCH (08:33)
--- NOTE | 2017-06-28 08:43 | PD.VS.PN ---
Subjective POD #: 5 Procedure(s): ABF and L groin PFA TEA Subjective/Hospital Course 67/M S/P ABF and L groin PFA TEA Pt doing well w/o complaints LE warm w/ motor intact Incisions I/C/D Objective Vitals/I&O Date Time Temp Pulse Resp B/P (MAP) Pulse Ox O2 Delivery O2 Flow Rate FiO2 06/28/17 08:00 99 Room Air 06/28/17 08:00 98.3 78 16 141/63 (89) 99 06/28/17 03:33 98.5 73 16 138/63 (88) 96 06/28/17 00:42 98.0 74 16 134/62 (86) 99 06/27/17 21:15 98.3 84 16 140/67 (91) 97 06/27/17 21:15 97 Room Air 06/27/17 15:00 98.2 77 16 168/80 (109) 96 06/27/17 11:00 98.6 70 16 150/67 (94) 96 06/28/17 06/28/17 06/28/17 07:00 15:00 23:00 Intake Total 480 ml Balance 480 ml Exam: GENERAL: A&OX3,NAD,GCS15 SKIN:R/L groin and Abdominal incisions intact well approximated w/o R/D/S NECK: Supple, trachea midline. No JVD or lymphadenopathy. CARDIOVASCULAR: RRR without murmurs, gallops, or rubs. RESPIRATORY: BS CTA GASTROINTESTINAL: Abdomen soft, non-tender, nondistended. MUSCULOSKELETAL: No cyanosis, or edema. LE warm w/ motor intact Pt denied claudication or rest pain Assessment and Plan Plan POD# 5 Pt S/P ABF and groin reconstruction Pt w/o complaints Pt denied claudication or rest pain Plan Discussed and reviewed post operative care and management Questions answered Pt clear for D/C this am Arranged out pt f/u Jeniffer Bangura [facility]/Fullscreen [phone] Discharge Planning Today Jeniffer Bangura Jun 28, 2017 08:43
--- NOTE | 2017-06-28 09:16 | PD.VS.DC ---
Discharge Summary Admission Date: Jun 23, 2017 at 06:10 Discharge Date: Jun 28, 2017 Admission Diagnosis: (1) PAD (peripheral artery disease) (2) Ischemia of right lower extremity Discharge Diagnosis: (1) History of svqlt-tisml-pyjzczv bypass ICD Codes: Z95.828 - Presence of other vascular implants and grafts Brief History from admission 67/M with a hx of PAD, aorto-iliac occlusive disease and failed inflow procedures Procedure(s): ABF and L groin PFA TEA Significant Findings GENERAL: A&OX3,NAD,GCS15 SKIN:R/L groin and Abdominal incisions intact well approximated w/o R/D/S NECK: Supple, trachea midline. No JVD or lymphadenopathy. CARDIOVASCULAR: RRR without murmurs, gallops, or rubs. RESPIRATORY: BS CTA GASTROINTESTINAL: Abdomen soft, non-tender, nondistended. MUSCULOSKELETAL: No cyanosis, or edema. LE warm w/ motor intact Pt denied claudication or rest pain Hospital Course: 67/M with a hx of PAD, aorto-iliac occlusive disease and failed inflow procedures Pt s/p ABF and Left groin reconstruction POD #: 1 looks great. pain controlled Minimal NGT output decent UOP Feet feel ok POD #: 2 No nausea since NGT out + voiding feet feel ok pain controlled POD #: 3 No nausea and edilia clears + voiding OOB and ambulated pain controlled feet feel ok POD #: 4 Looks great pain controlled ambulating edilia some po POD #: 5 Procedure(s): Pt doing well w/o complaints LE warm w/ motor intact Incisions I/C/D + BM Denied abdominal pain Pt denied claudication or rest pain Pt ambulating well Pt clear for D/C Arranged post op f/u in 2W w/ a surveillance GORDY Allergies Coded Allergies Type Severity Reaction Last Updated Verified codeine Allergy Severe HALLUCINATES 06/23/17 No 06/26/17 06/26/17 06/27/17 06/27/17 06/28/17 06/28/17 06:00 18:00 06: 18:00 06: 18:00 Intake Total 420 ml 1200 ml 480 ml Output Total 400 ml 400 ml 800 ml Balance 20 ml -400 ml 400 ml 480 ml Intake Oral 420 ml 1200 ml 480 ml Output Urine Total 400 ml 400 ml 800 ml Stool Total 0 ml 0 ml # Voids 2 2 Orders Procedure Category Date Status Time Hydromorphone MED 06/25/17 In Process (Dilaudid) 14:15 Diet Heart Healthy DIET 06/26/17 Transmitted Lunch ^ Other Nursing Orders RISHI 06/27/17 In Process 07:11 Attending Discharge DISCHARGE 06/28/17 Transmitted Order Vital Signs Date Time Temp Pulse Resp B/P (MAP) Pulse Ox O2 Delivery O2 Flow Rate FiO2 06/28/17 08:00 99 Room Air 06/28/17 08:00 98.3 78 16 141/63 (89) 99 06/28/17 03:33 98.5 73 16 138/63 (88) 96 06/28/17 00:42 98.0 74 16 134/62 (86) 99 06/27/17 21:15 98.3 84 16 140/67 (91) 97 06/27/17 21:15 97 Room Air 06/27/17 15:00 98.2 77 16 168/80 (109) 96 06/27/17 11:00 98.6 70 16 150/67 (94) 96 06/27/17 08:00 98.4 78 14 136/69 (91) 98 06/27/17 08:00 98 Room Air 06/27/17 08:00 78 06/27/17 07:00 78 06/27/17 06:00 74 06/27/17 05:00 78 06/27/17 04:00 79 06/27/17 04:00 98.6 77 16 133/65 (87) 97 06/27/17 03:00 80 06/27/17 02:00 76 06/27/17 01:00 80 06/27/17 00:00 81 06/27/17 00:00 100.5 81 18 131/61 (84) 96 06/26/17 23:00 82 06/26/17 22:51 18 06/26/17 22:00 82 06/26/17 21:00 82 06/26/17 20:00 97 Room Air 06/26/17 20:00 101.2 80 20 139/66 (90) 97 4/1/18 20:00 79 06/26/17 19:00 82 06/26/17 18:00 81 06/26/17 17:00 63 06/26/17 16:00 78 06/26/17 15:00 75 06/26/17 15:00 98.6 76 16 135/71 (92) 100 06/26/17 14:00 82 06/26/17 13:00 76 06/26/17 12:00 77 06/26/17 11:00 75 06/26/17 11:00 98.4 79 19 127/65 (85) 98 06/26/17 10:00 79 06/26/17 09:00 84 06/26/17 08:00 84 06/26/17 07:15 81 06/26/17 07:00 98.6 85 19 140/67 (91) 97 06/26/17 07:00 97 Room Air 06/26/17 06:00 82 06/26/17 05:00 88 06/26/17 04:00 86 06/26/17 04:00 100.4 83 16 140/74 (96) 97 06/26/17 03:00 84 06/26/17 02:00 80 06/26/17 01:00 82 06/26/17 00:00 82 06/26/17 00:00 98.9 83 16 133/67 (89) 98 06/25/17 23:00 83 06/25/17 22:00 78 06/25/17 21:00 97 Room Air 06/25/17 21:00 98.9 79 16 144/66 (92) 99 06/25/17 21:00 82 06/25/17 20:00 80 06/25/17 19:00 78 06/25/17 18:07 80 06/25/17 17:02 77 06/25/17 16:05 77 06/25/17 15:03 98.9 75 18 136/63 (87) 99 06/25/17 15:00 78 06/25/17 14:00 80 06/25/17 13:48 75 06/25/17 12:51 98.7 77 18 136/64 (88) 97 06/25/17 12:19 99.9 84 18 129/65 (86) 96 Discharge Condition: Good Discharge Disposition: Discharge Home Discharge Instructions: DIET May resume a heart healthy diet ACTIVITY Activities as tolerated WOUND CARE Leave your incisions open to air Call to report any increased redness, drainage or swelling FOLLOW UP Arranged follow up with a surveillance GORDY Any questions or concerns: Call [facility] at [facility] [phone] Jeniffer Bangura Jun 28, 2017 09:16
[2017-06-28 11:00] VITALS: BP 151/66; PULSE 70; RESP 16; TEMP 98; O2SAT 99
[2017-06-28] MEDS: ENOXAPARIN SODIUM 40 MG/0.4 ML SYRINGE SQ SCH (12:00)
== END 2017-06-28 14:15 | disposition home or self-care (01) | DRG 271 ==
LOC: HSDI 06:10 → HCVI 13:15 → HCPC 06-25 12:16
PROVIDERS: ADMIT Surgery; ATTEND Surgery
PROC: 04UL0JZ Supplement Left Femoral Artery with Synthetic Substitute, Open Approach (ICD-10-PCS; 2017-06-23)
PROC: 04100JK Bypass Abdominal Aorta to Bilateral Femoral Arteries with Synthetic Substitute, Open Approach (ICD-10-PCS; principal; 2017-06-23 07:38)
PROC: 04CL0ZZ Extirpation of Matter from Left Femoral Artery, Open Approach (ICD-10-PCS; 2017-06-23 07:38)
DX: I70.213 Atherosclerosis of native arteries of extremities with intermittent claudication, bilateral legs (principal); I70.92 Chronic total occlusion of artery of the extremities; G62.9 Polyneuropathy, unspecified; I10 Essential (primary) hypertension; E78.5 Hyperlipidemia, unspecified; I25.10 Atherosclerotic heart disease of native coronary artery without angina pectoris; F32.9 Major depressive disorder, single episode, unspecified; F41.9 Anxiety disorder, unspecified; I70.313 Atherosclerosis of unspecified type of bypass graft(s) of the extremities with intermittent claudication, bilateral legs; Z95.5 Presence of coronary angioplasty implant and graft; Z95.0 Presence of cardiac pacemaker; Z87.891 Personal history of nicotine dependence
CPT/HCPCS: 80048; 81001; 85025; 85027; 85610; 86850; 86900; 86901; 93005; J0131; J0690; J1170; J1630; J1644; J1650; J1940; J2370; J2710; J2720; J3010; J7120

== ENCOUNTER 2017-09-12 06:58 | Day surgery (SDC) | payer MEDICARE ==
[~2017-09-12] VITALS: Ht 185.4 cm; Wt 71.8 kg
[2017-09-12] MEDS ORDERED: CHLORHEXIDINE GLUCONATE 2 % 1 PACK (2 CLOTHS) TOPICAL SCH (07:30)
[2017-09-12] MEDS ORDERED: MUPIROCIN 2% OINT 1 APPLIC/GM SYR NASAL SCH (07:30)
[2017-09-12] MEDS ORDERED: CHLORHEXIDINE GLUCONATE 2 % 1 PACK (2 CLOTHS) TOPICAL PRN (07:30)
[2017-09-12] MEDS ORDERED: SODIUM CHLORID 0.9% 500 ML IV PRN (07:30)
[2017-09-12] MEDS ORDERED: POVIDONE IODINE 5% (ANTISEPSIS KIT) 4 APPLICATIONS EACH NARE PRN (07:30)
[2017-09-12] MEDS ORDERED: VANCOMYCIN 1000 MG/NS 250 ML IV SCH ×2 (07:30)
[2017-09-12] MEDS ORDERED: METOPROLOL TARTRATE 25 MG TAB PO PRN (07:30)
[2017-09-12] MEDS ORDERED: POVIDONE IODINE 5% (ANTISEPSIS KIT) 4 APPLICATIONS EACH NARE SCH (07:30)
[2017-09-12] MEDS ORDERED: ceFAZolin 2 GM PREMIX 50 ML IV SCH (07:30)
[2017-09-12] MEDS ORDERED: LACTATED RINGER'S 1000 ML IV PRN (07:30)
[2017-09-12] MEDS ORDERED: NS 1000 ML IV SCH (07:30)
[2017-09-12 07:37] VITALS: BP 147/80; PULSE 74; RESP 18; TEMP 98; O2SAT 99
[2017-09-12 07:47] LABS: AUTOMATED NEUTROPHIL # 5.2 TH/MM3 (1.8-7.7); BASOPHIL % 0.4 % (0.0-2.0); EOSINOPHIL # 0.1 TH/MM3 (0-0.4); EOSINOPHIL % 1.1 % (0.0-4.0); HEMOGLOBIN 13.3 GM/DL (13.0-17.0); LYMPH % 17.7 % (9.0-44.0); LYMPHOCYTE # 1.3 TH/MM3 (1.0-4.8); MEAN CELL VOLUME 93.9 FL (80.0-100.0); MEAN CORPUSCULAR HEMOGLOBIN 31.9 PG (27.0-34.0); MONO % 8.7 % (0.0-8.0); MONOCYTE # 0.6 TH/MM3 (0-0.9); NEUT % 72.1 % (16.0-70.0); PLATELET COUNT 134 TH/MM3 (150-450); RED BLOOD COUNT 4.15 MIL/MM3 (4.50-5.90); RED CELL DISTRIBUTION WIDTH 15.4 % (11.6-17.2); WHITE BLOOD COUNT 7.3 TH/MM3 (4.0-11.0)
[2017-09-12] MEDS ORDERED: VITA500L2 PO (07:57)
[2017-09-12] MEDS ORDERED: VIAG100T PO (07:57)
[2017-09-12] MEDS ORDERED: SELE200T17 PO (07:57)
[2017-09-12] MEDS ORDERED: DONE5TAB7 PO (07:58)
[2017-09-12 08:00] LABS: BICARBONATE 26.1 MEQ/L (21.0-32.0); CALCIUM 8.9 MG/DL (8.5-10.1); CREATININE 1.47 MG/DL (0.60-1.30)
[2017-09-12 09:03] LABS: INTERNATIONAL NORMALIZED RATIO 1.1 RATIO; PROTHROMBIN TIME - PATIENT 10.7 SEC (9.8-11.6)
[2017-09-12] MEDS ORDERED: PROPOFOL 200 MG/20 ML AMP IV ONE (12:00)
[2017-09-12] MEDS ORDERED: LIDOCAINE HCL 1% PF 5 ML SYRINGE OTHER ONE (12:00)
[2017-09-12] MEDS ORDERED: LIDOCAINE HCL 2% 20 ML VIAL ONE (17:15)
[2017-09-12] MEDS ORDERED: VANCOMYCIN 500 MG VIAL ONE (17:15)
--- NOTE | 2017-09-12 18:26 | CATHPROC ---
Patient Name: RAVEN HERNÁNDEZ Study #: [id number] Initial MD: Erendira Head Date of : 1950 Study Date: 09/12/2017 Cardiac Catheterization Report 09/12/2017 6:29:15 PM Financial #: [id number] 1 of 8 Patient Name: RAVEN HERNÁNDEZ Study #: [id number] Initial MD: Erendira Head Date of : 1950 Study Date: 09/12/2017 Entire Case Report Patient Information Patient Name RAVEN HERNÁNDEZ Date of 1950 Age 67 years Financial # [id number] Gender M AlternateID Lab Number 6 Room Number DC06 Height (in) 73.0 Height (cm) 185.4 BSA 1.95 Weight (lbs) 158.0 Weight (kg) 71.8 Patient Address/Phone Number Home Address [facility] Home Phone Number [phone] [place] [address] Study Information Study Number Admission Scheduled Start Study Start [id number] Sep 12 2017 6:58AM 09/12/2017 Sep 12 2017 4:34PM [place] Service Cardiac Pacer/ICD Admit Source Facility Department Other [facility] - [facility] Physician and Clinical Staff Initial Erendira Leahy Wet End Operator Kasey Lucas,RN Wet End Operator Kevin Doshi,(R) Other Anesthesia, TURN OPERATOR Recorder Brittany An BSN Scrub Jelly Bonner RCIS 09/12/2017 6:29:15 PM Financial #: [id number] 2 of 8 Patient Name: RAVEN HERNÁNDEZ Study #: [id number] Initial MD: Erendira Head Date of : 1950 Study Date: 09/12/2017 Equipment Time Rug Dyer Helper Description Size Mfg Part Number Used/Scraped DERMABOND, ADHESIVE SKIN VM12 16:39 CORDIS/PACER * Used GLUE MINI *[id number] DERMABOND, ADHESIVE SKIN [facility]12 18:26 CORDIS/PACER * Used GLUE MINI *[id number] DERMABOND, ADHESIVE SKIN VM12 18:26 CORDIS/PACER * Used GLUE MINI *[id number] 16:39 MEDLINE [employer] BLANKET,WARM AIR CCL * Used *[id number] TP-1103 16:39 MEDLINE INDUST[employer] SUTURE, STRIP PLUS 1/2" * Used *[id number] 16:39 MEDLINE PACER MOLINA, LIMB * 2530 *[id number] Used [id number] 16:39 MEDLINE PACER PACK, PACER CUSTOM * Used *[id number] 17:34 Needle Sponge Count 1 1 Used 17:34 Needle Sponge Count 20 200 Used 17:34 Needle Sponge Count 3 33 Used SUTURE, 0 ETHIBOND [CT1] (CX21D), 8pk SUTURE, 2-0 VICRYL [CT1] (XYZ070S) SUTURE, 2-0 VICRYL [CT1] (HEE491I) DEFIBRILLATOR, FORTIFY 18:03 [facility] VVEVVVIRV [id number] Used [employer] [facility], ELECTROSURGICAL 16:39 * [id number] *[id number] Used SURGICAL GROUNDING ORANGE [id number] 18:16 VITATRON MEDTRONIC PLASMABLADE, PEAD 3.0S * Used *[id number] 3164-2303 16:39 [employer] REYNA. / * Used *75252 Equipment Model, Serial, Lot Number and Expiration Data Description Model Number Serial Number Lot Number Expiration Date DEFIBRILLATOR, FORTIFY ASSURA [id number] 11-25-2018 Insurance Information Insurance Payor Private Health Insurance Third Libertarian Third Libertarian Number FHC - MCR O [id number] History: Allergies Allergy Reaction codeine HALLUCINATES 09/12/2017 6:29:15 PM Financial #: [id number] 3 of 8 Patient Name: RAVEN HERNÁNDEZ Study #: [id number] Initial MD: Erendira Head Date of : 1950 Study Date: 8 History: Risk Factors Family History of Hypertension Dyslipidemia Premature CAD Yes Yes Yes Prior PCI Yes Peripheral Artery Chronic Lung Disease Disease Yes Yes Labs Hgb (g/dl) Hct (%) RBC (MIL/MM3) WBC (l/cumm) Platelets (thousands) 11.60-17.00 35.00-51.00 4.00-5.90 4.00-11.00 150.00-450.00 13.3 39 4.2 7.3 134 Glucose (mg/dl) BUN (mg/dl) Creatinine (mg/dl) BUN:Creatinine (1:x) 74.00-106.00 7.00-18.00 0.50-1.30 10.00-20.00 103 15 1.5 10 Na (meq/l) K (meq/l) 136.00-145.00 3.50-5.10 144 3.7 INR (PTT:PT) 0.90-1.10 1.1 Medication Medication Total Dose (Bolus/Oral) Medication Total Dosage/Unit 2% XYLOCAINE 50 mL Medications (Bolus/Oral) Medication Time Given Dosage/Unit Administered By Reason 2% XYLOCAINE 09/12/2017 6:00:05 PM 50 mL Erendira Head 50 mL 2% XYLOCAINE given in lab by Erendira Head via Subcutaneous. Ordered by Erendira Head. Medication (Drip) Medication Time Given Dosage/Unit Concentration/Unit Diluent (ml) Solution ANCEF 09/12/2017 5:16:48 PM 2 g 2 g ANCEF given in lab by Kasey Lucas RN via Peripheral IV. Ordered by Erendira Head. Reason: As per physicians verbal order. VANCOMYCIN DRIP 09/12/2017 5:15:47 PM 1 g 1 g VANCOMYCIN DRIP given in lab by Kasey Lucas, ZOHREH via Peripheral IV. Ordered by Erendira Head. Reason: As per physicians verbal order. 09/12/2017 6:29:15 PM Financial #: [id number] 4 of 8 Patient Name: RAVEN HERNÁNDEZ Study #: [id number] Initial MD: Erendira Head Date of : 1950 Study Date: 09/12/2017 Initial Case Assessment Cardiovascular HR NIBP 61 162/78 Edema Present Skin color Skin None Normal Warm Dry Circulatory - Right Pulses Dorsalis Pedis 1 Scale (0,1,2,3,4,d) Circulatory - Left Pulses Dorsalis Pedis 1 Scale (0,1,2,3,4,d) Circulatory - Lower Extremities Color Lower Right Color Lower Left Normal Normal Neurological State Oriented to time-place- Alert Moves all extremities person Respiration - General Respiration Rate SpO2 (%) (B/min) 16 99 09/12/2017 6:29:15 PM Financial #: [id number] 5 of 8 Patient Name: RAVEN HERNÁNDEZ Study #: [id number] Initial MD: Erendira Head Date of : 1950 Study Date: 09/12/2017 Final Case Assessment Cardiovascular HR NIBP 70 106/54 Edema Present Skin color Skin None Normal Warm Dry Circulatory - Right Pulses Dorsalis Pedis 1 Scale (0,1,2,3,4,d) Circulatory - Left Pulses Dorsalis Pedis 1 Scale (0,1,2,3,4,d) Circulatory - Lower Extremities Color Lower Right Color Lower Left Normal Normal Neurological State Drowsy Moves all extremities Respiration - General Respiration Rate SpO2 (%) O2 (lpm) (B/min) 14 100 4 Chronological Log Time Study Chronological Log 17:03:23 Patient arrived via Bed. 17:03:23 Patient Name, D.O.B, / Armband Verified By R.N. 17:03:24 Consent signed by the physician and the patient and verified by the [facility] staff. 17:04:25 Pre-op and post- op instructions given; patient acknowledges understanding of instructions. 17:04:26 Verbal Stimulation=2 Physical Stimulation=2 Airway=2 Respiration=2 TOTAL=8. (0=absent, 1=li mited, 2=present) 17:04:29 Patient has been NPO for More than 6Hrs. 17:04:30 Skin Breakdown- none per pt 17:05:30 Patient Warmer Placed on the Table. 17:05:31 Disposable Defibrillator Pads Placed On Patient. 09/12/2017 6:29:15 PM Financial #: [id number] 6 of 8 Patient Name: RAVEN HERNÁNDEZ Study #: [id number] Initial MD: Erendira Haed Date of : 1950 Study Date: 09/12/2017 17:06:32 [place] Prominences Protected 17:07:57 2% CHLORHEXIDINE GLUCONATE WASH AND NASAL SWIPE DONE PRIOR TO PROCEDURE. Assessment: Initial Case, HR=61 BPM, RVMZ=868/78 mmhg, Edema=None, Color=Normal, Skin = Warm, D ry Right Pulses: Sancho Ped=1 Left Pulses: Sancho Ped=1 17:15:14 Lower Right Extremities: Color=Normal Lower Left Extremities: Color=Normal Neurological: State=Alert, Ox3, SIN Respiration: Resp=16 B/min, SpO2=99 % 1 g VANCOMYCIN DRIP given in lab by Kasey Lucas, RN via Peripheral IV. Ordered by Javon Head. Reason: As 17:15:47 per physicians verbal order. 2 g ANCEF given in lab by Kasey uLcas, ZOHREH via Peripheral IV. Ordered by Erendira Head. Reas on: As per physicians 17:16:48 verbal order. 17:17:35 A # 20 IV was noted in the Antecubital (right). Grade = 0 0.9% NaCl @ KVO 17:17:37 A # 20 IV was noted in the Forearm (left). Grade = 0 0.9% NaCl @ KVO 17:17:39 History and physical is being dictated. 17:17:42 Table restraints applied according to hospital policy 17:17:50 Bovie ground pad applied to: right thigh 17:26:00 Left Upper Chest Prepped Times Two. 17:29:53 Reference ECG taken First Sponge And Instrument Count Done by Jelly Bonner RCIS. 17:31:29 Hypo's: 1, Sponges: 20, Bovie/scratch: 3 Sutures: 2, Blades: 1, Instruments: 26, Syveck Patches: ~SYVECK PATCH~ verified by AM 17:33:46 Anesthesia at bedside. Assumes care of patient. 17:34:43 A sterile drape was applied after a 5 minute prep drying time. 17:40:49 Dr. Vincent here from anesthesia for LMA insertion 17:46:12 MD paged 17:54:37 MD arrived. Time Out. Correct patient, procedure, procedure equipment, site and side verified with physicia n present. Time 17:59:47 concurred by MD, individual staff and TURN OPERATOR. Time Out #2 - Consents verified, patient in correct position, all results are labled and displa yed, safety precautions 17:59:48 taken, antibiotics administered. Time out concurred by MD, individual staff and TURN OPERATOR in procedu re 17:59:52 Case Start 18:00:05 50 mL 2% XYLOCAINE given in lab by Erendira Head via Subcutaneous. Ordered by Erendira Head . 18:01:18 Surgical Incision Made. 18:03:30 A pocket was created at the Lt. upper chest. 18:04:14 A device was explanted. 18:05:15 Pocket flushed with antibiotic solution 18:09:29 A DEFIBRILLATOR, FORTIFY ASSURA VR VVEVVVIRV was connected and placed in the pocket. 18:11:50 The pocket is being closed. 18:12:55 Case End (Physician broke scrub) 09/12/2017 6:29:15 PM Financial #: [id number] 7 of 8 Patient Name: RAVEN HERNÁNDEZ Study #: [id number] Initial MD: Erendira Head Date of : 1950 Study Date: 09/12/2017 Second Sponge And Instrument Count Done by Jelly Bonner RCIS. 18:13:02 Hypo's: 1, Sponges: 20, Bovie/scratch: 3 Sutures: 2, Blades: 1, Instruments: , Syveck Patches: ~SYVECK PATCH~ verified by AM 18:18:53 No case complications noted. 18:18:54 Cine recording checked. 18:18:56 Holding Area notified of successful intervention. 18:18:57 Bedside Report will be given. 18:21:14 The pocket was closed. Final Sponge And Instrument Count Done by Jelly Bonner RCIS. 18:21:40 Hypo's: 1, Sponges: 20, Bovie/scratch: 3 Sutures: 2, Blades: 1, Instruments: 26, Syveck Patches: ~SYVECK PATCH~ verified by AM 18:22:46 Steri-strips and a sterile dressing applied to site. 18:29:20 Anesthesia removed LMA Assessment: Final Case, HR=70 BPM, AIQS=433/54 mmhg, Edema=None, Color=Normal, Skin = Warm, Dr y Right Pulses: Sancho Ped=1 Left Pulses: Sancho Ped=1 18:30:49 Lower Right Extremities: Color=Normal Lower Left Extremities: Color=Normal Neurological: State=Drowsy, SIN Respiration: Resp=14 B/min, GkF9=073 %, O2=4 lpm 18:31:09 Patient moved to stretcher 18:31:19 Defibrillator and ground pads removed. Skin intact. 18:32:40 Pt transported on bed to holding area with RN and tech accompanying in stable condition br eathing independently. End Study - Contrast Media Used In Study Contrast Total Opened (mL) Total Used (mL) Total Wasted (mL) Omnipaque 0 0 0 End Study - Maximum Contrast Load Max Contrast Load (mL) 239.4 End Study - Radiation Exposure Fluoro Time (minutes) 0.1 End Study - Patient Disposition Complications Transferred To No Telemetry Bed 09/12/2017 6:29:15 PM Financial #: [id number]
--- NOTE | 2017-09-12 18:29 | PD.CARD ---
Dual Defib Replacement PROCEDURE DATE: Sep 12, 2017 NYHA Classification: Class II (Mild) Prevention: Primary Dual Defib Replacement PROCEDURE 1. Single-chamber defibrillator removal. 2. Single-chamber defibrillator replacement. 3. Pocket revision. Mr. Pablo is a 67 -year-old male with congestive heart failure, cardiomyopathy, defibrillator currently end of life, admitted for generator replacement. The risks, the nature and the benefit of the procedure clearly stated to him. The risks include pneumothorax, cardiac perforation, stroke and even . He understood and agreed to proceed. PROCEDURE After written informed consent was obtained, the patient was brought to the EP lab where he was prepped and draped in the usual sterile fashion. Conscious sedation was initiated and maintained throughout the procedure by anesthesiologist. Once sedation was verified, the left infraclavicular area was anesthetized with 2% Xylocaine. Using #11 blade scalpel, a 3-cm incision was made over the existing generator. The incision was then taken down deep fascial layers generator exposed. Once exposed, it was removed from the pocket. Scar tissue was removed around the lead pocket revision was performed. Pocket was expanded. Then, the lead was disconnected from the generator and tested. After adequate pacing and sensing thresholds were obtained. The leads were connected to the new generator and placed into the pocket. I then proceeded with wound closure. The deep fascial layer was approximated using 2-0 Vicryl suture in a continuous fashion. The subcutaneous layer was approximated using 2-0 Vicryl suture in a continuous fashion. The subcuticular layer was approximated using 2-0 Vicryl suture in a continuous fashion. Dermabond adhesive was applied to the wound followed by sterile pressure dressing. There was no complication. The patient tolerated procedure. Blood loss minimal. 1. Explanted hardware: The explanted defibrillator is a [employer] model number [id number], serial number [id number]. That was implanted in 2008. For information about existing lead please refer to previous dictation. 2. Implanted hardware: The implanted defibrillator generator is a [employer], model number [id number], serial number [id number]. 3. Threshold: The right ventricular pacing threshold in the bipolar mode was 1.5 volts at 0.5 milliseconds. Lead impedance 360 ohms and R-wave at 11.4 mV. 4. Settings: The device is set in a VVI 40. Defibrillatory portioned for two zones, one zone for ventricular tachycardia between 180 to 250 beats per minute. Initial therapy consists of one burst of ATP, one ramp, 81%, 10 pulses, 10 ms decremental, followed by 20 then 30and all subsequent shocks at 40defibrillatory shock. Second zone for ventricular fibrillation above 250 beats per minute, first therapy at 30 and all subsequent shocks at 40 joule defibrillatory shock. CONCLUSIONS Successful defibrillator removal, defibrillator replacement and pocket revision. COMMENT/RECOMMENDATIONS The patient will be transferred to telemetry unit. He will be observed, when stable can be discharged home Erendira Head MD Sep 12, 2017 18:29
[2017-09-12] MEDS ORDERED: SODIUM CHLORIDE 0.9% FLUSH 10 ML FLUSH IV FLUSH PRN (18:30)
[2017-09-12] MEDS ORDERED: CEPH-460 PO (18:32)
[2017-09-12] MEDS ORDERED: SODIUM CHLORIDE 0.9% FLUSH 10 ML FLUSH IV FLUSH SCH (21:00)
--- NOTE | 2017-09-12 22:56 | EKG ---
Date Performed: 09/12/2017 Time Performed: 07:42:20 PTAGE: 67 years EKG: Sinus rhythm with PAC(s). Borderline ECG PREVIOUS TRACING : 06/23/2017 07.05 DOCTOR: Erendira Head Interpretating Date/Time 09/12/2017 22:52:11
== END 2017-09-12 20:00 | disposition home or self-care (01) ==
LOC: HDOC 06:58 → HDIC 06:59 → HDOC 20:00
PROVIDERS: ATTEND Internal Medicine Interventional Cardiology
DX: Z45.02 Encounter for adjustment and management of automatic implantable cardiac defibrillator (principal); I11.0 Hypertensive heart disease with heart failure; I50.9 Heart failure, unspecified; I42.9 Cardiomyopathy, unspecified; I70.309 Unspecified atherosclerosis of unspecified type of bypass graft(s) of the extremities, unspecified extremity; I25.10 Atherosclerotic heart disease of native coronary artery without angina pectoris; J44.9 Chronic obstructive pulmonary disease, unspecified; F32.9 Major depressive disorder, single episode, unspecified; Z87.891 Personal history of nicotine dependence
CPT/HCPCS: 00530; 33262; 80048; 85025; 85610; 85730; 86850; 86900; 86901; 93005; C1722; J0690; J3010; J3370; J7050